=== PATIENT | female | born 1950 | race Caucasian/White ===

== ENCOUNTER → 2024-11-01 15:03 | Outpatient (REF) | payer OTHER, SELFPAY ==
[2024-11-01 16:04] LABS: ALT (SGPT) 64 U/L (0-35); AST (SGOT) 50 U/L (14-36); Albumin 3.3 g/dl (3.5-5.0); Alkaline Phosphatase 170 U/L (38-126); Blood Urea Nitrogen 22 mg/dl (7-17); Calcium 8.3 mg/dl (8.4-10.2); Carbon Dioxide 30 mmol/L (22-30); Chloride 95 mmol/L (98-107); Glucose 149 mg/dl (70-99); Potassium 3.8 mmol/L (3.5-5.1); Sodium 133 mmol/L (135-145); Total Bilirubin 0.9 mg/dl (0.2-1.3); Total Protein 6.5 g/dl (6.3-8.2); eGFR 58.39
[2024-11-01 16:26] LABS: % Basophils 0.3 % (0-2); % Immature Granulocytes 2.6 % (0-0.5); % Neutrophils 88.1 % (42.2-75.2); Absolute Basophils 0.1 10^3/uL (0-0.2); Absolute Immature Granulocytes 0.6 10^3/uL (0-0.05); Absolute Lymphocytes 0.7 10^3/uL (1.2-3.4); Absolute Monocytes 1.4 10^3/uL (0.1-0.6); Absolute Neutrophils 20.4 10^3/uL (1.4-6.5); Hematocrit 35.5 % (37.0-47.0); Hemoglobin 11.6 g/dL (12.0-16.0); Mean Corp Hgb Conc. 32.7 g/dL (33.0-37.0); Mean Corpuscular Hgb 26.5 pg (27.0-31.0); Mean Corpuscular Volume 81.1 fL (81.0-99.0); Mean Platelet Volume 9.3 fL (7.4-10.4); Nucleated Red Blood Cells % 0 %; Platelet Count 448 10^3/uL (130-400); Red Blood Cell Count 4.38 10^6/uL (4.20-5.40); Red Cell Dist. Width 15.2 % (11.5-14.5); White Blood Cell Count 23.2 10^3/uL (4.8-10.8)
== END ==
LOC: RAD 15:03
PROVIDERS: ATTENDING PHYSICIAN Family Medicine
DX: R10.30 Lower abdominal pain, unspecified (principal); R03.1 Nonspecific low blood-pressure reading; R50.9 Fever, unspecified; R31.9 Hematuria, unspecified; N39.0 Urinary tract infection, site not specified
CPT/HCPCS: 74177; 36415; 80053; 85025; Q9967

== ENCOUNTER 2024-11-01 21:33 | Inpatient (IN) | payer OTHER, SELFPAY ==
[2024-11-01 17:27] VITALS: BP 102/75
--- NOTE | 2024-11-01 19:22 | EDRN ---
Pts verbally aggressive and rude to staff. Pts is concerned that others that have arrived after his did are having treatment sooner than his , informed that patients are triaged and go back into treatment area by acuity and
not by time of arrival. Pts began to raise his voice and attempt to intimidate this RN, this RN asked pts to have a seat in waiting area and pts stood at desk and continued to attempt to intimidate this RN. Pts
finally returned to the waiting area with his and is seated next to her, pt in no signs of distress.
[2024-11-01 20:24] VITALS: BMI 34.8
[2024-11-01 20:30] VITALS: BP 112/73
--- NOTE | 2024-11-01 20:43 | ED.GENMED ---
History of Present Illness
<Nina Lewis SENIOR CONSULTANT - Last Filed: 11/02/24 03:09>
General
Chief Complaint: Abnormal Lab Value
Source: patient and spouse
Exam Limitations: none
Time Seen by Provider: 11/01/24 20:05
Nursing documentation reviewed up to this point in time: agreed with
History of Present Illness
History of Present Illness:
74yo female w h/o HTN, here for fatigue, abdominal pain, poor appetite, symptoms started 9 days ago, saw PCP on 10/30, started on Cipro and Flomax for a reported urinary tract infection, she has had a total of 4 doses of Cipro,
She had outpatient lab work done and her PCP called her today to tell her to get to the hospital as her lab work is abnormal. She states her pain is now 2/10. She is comfortable laying on her back. She states her temp max was 102.2 earlier today
and has taken no Tylenol or ibuprofen. She denies N/V, had 2 days of severe diarrhea yesterday and the day before, she has had no diarrhea today.
Past History
<Nina Lewis, SENIOR CONSULTANT - Last Filed: 11/02/24 03:09>
Past History
ED Past Medical History: HTN
ED Past Surgical History: Gynecological and Orthopedic
Social History
Tobacco: Former smoker
Alcohol: Occasional
Personal:
Living: with family
Review of Systems
<Nina Lewis, SENIOR CONSULTANT - Last Filed: 11/02/24 03:09>
Review of Systems
Allergies reviewed?: Yes
All Other Systems: ROS reviewed and negative except as documented in HPI and ROS
Constitutional: Reports fever
Respiratory: Denies trouble breathing
Cardiac: Denies chest pain
ABD/GI: Reports abdominal pain, nausea and diarrhea; Denies vomiting, bloody stools or black stools
: Denies dysuria or difficulty voiding
Musculoskeletal: Reports no symptoms
Skin: Reports no symptoms
Neurological: Reports no symptoms
Phy Exam
<Nina Lewis, SENIOR CONSULTANT - Last Filed: 11/02/24 03:09>
Physical Exam
Physical Exam:
GENERAL: No acute distress. A&Ox3.
CONSTITUTIONAL: Afebrile.
EYES: clear, conjunctivae normal
ENMT: moist mucus membranes, Pharynx nl
RESPIRATORY: Regular respirations, nonlabored, lungs clear.
CARDIOVASCULAR: Regular rate and rhythm, no murmurs, no rubs.
GI: Soft, mild tenderness across lower abdomen, normal BS
MUSCULOSKELETAL: Moves with ease. Well perfused.
SKIN: Warm, dry, pink
PSYCH: Normal mood and affect. Well kept, interactive and appropriate
NEUROLOGIC: Awake, alert and oriented. No focal neurological deficits
Course
<Nina Lewis, SENIOR CONSULTANT - Last Filed: 11/02/24 03:09>
Orders/Labs/Results
Orders:
Orders
11/01/24 Breakfast
NPO
Allow oral meds: Yes
Allow clear liquids: Sips of Clears
11/01/24 20:20
Urinalysis Reflex To Culture Urgent
Date Specimen was Collected: 11/01/24
Time Specimen was Collected: 22:42
11/01/24 20:28
Lactic Acid Q4H
Comment: CANCEL 2nd LACTIC ACID IF 1st LACTIC ACID IS LESS THAN 2
Blood Culture Q30M
FARAZ Source: Blood/Venous
Specimen Description:
Blood Culture Q30M
FARAZ Source: Blood/Venous
Specimen Description:
11/01/24 20:32
Ampicillin/Sulbactam 3 G [Unasyn] 3 gm 0.9% Sodium Chloride 100 ml [Nss] 100 ml IV NOW
11/01/24 20:36
0.9% Sodium Chloride 1000 ml [Nss] 1,000 ml IV BOLUS
11/01/24 20:41
IRAD CONSULT Urgent
Consulting Provider: Mohamud Nichols
Was physician already notified: Yes
Procedure being ordered, including laterality if applicable: divertic w abscesses
Acknowledgement that appropriate orders are entered: Yes
11/01/24 20:42
ColoRectal Surgery Consult Urgent
Consulting Provider: Xander Gómez
Was physician already notified: Yes
Reason for consult: sigmoid diverticulitis with abscesses
11/01/24 20:44
Piperacillin/Tazo 4.5 Gram [Zosyn] 4.5 gram in 100 ml IV NOW
11/01/24 21:18
HYDROmorphone [Dilaudid] 0.5 mg IV NOW STA
11/01/24 21:19
Admit/Transfer Patient As Directed
Co-Sign Provider:
Level of Care: Inpatient admission
Assign to:: Medical/Surgical
Physician / Group: Deangelo
Diagnosis: Acute Diverticulitis with Abscess(es)
Reason for Hospitalization: Acute Diverticulitis with Abscess(es)
Expected length of stay greater than two midnights?: Yes
ELOS- Estimated Length of Stay in days: 3
I certify the patient meets the requirements for IP care: Yes
PRN Pain Medication Management As Directed
May give lesser potent ordered pain med per pt: Yes
preference::
Protocol:: Medication orders for pain may be administered in a
manner that supports deferring to patient preference
when the pt is:
- Requesting an ordered lesser potent pain medication.
Least to most potent pain medications are defined
as: acetaminophen < NSAID < tramadol < opioids
(morphine, oxycodone, hydromorphone).
- Requesting a lesser dose of the same medication IF
ORDERED.
- Requesting a less intrusive route of administration
if both routes are prescribed by the provider (PO <
IV).
11/01/24 21:20
Code Status As Directed
Resuscitation Status: Full Code
11/01/24 21:27
HYDROmorphone [Dilaudid] 0.5 mg IV NOW STA
11/01/24 22:00
Flush (0.9% Sodium Chloride) [Flush (Nss)] See Dose Instructions IV PER PROTOCOL
11/01/24 22:38
Acetaminophen [Tylenol] 650 mg PO Q4HPRN PRN
HYDROmorphone [Dilaudid] 0.5 mg IV Q4HPRN PRN
Lactated Ringers [Lr] 1,000 ml IV 125 mls/hr
Ondansetron Injectable [Zofran] 4 mg IV Q6HPRN PRN
11/01/24 22:38
Fluid Culture with Gram Stain Routine
FARAZ Source: Fluid
Specimen Description:
Comment: IR abscess drainage
Activity As Directed
Activity Level: Ambulate
With Assistance
I/O [Intake/ Output] As Directed
Frequency: Per unit guidelines
Pneumatic Compression Sleeves As Directed
Type: Knee high
Vital Signs As Directed
Frequency: Per unit guidelines
Oxygen Therapy [O2 Therapy] [RESP] Routine
Titrate/Wean O2 to maintain O2 sat greater than (%): 94
DX Deep Vein Thrombosis Video Routine
11/02/24 00:30
Lactic Acid Q4H
Comment: CANCEL 2nd LACTIC ACID IF 1st LACTIC ACID IS LESS THAN 2
11/02/24 02:00
Piperacillin/Tazo 3.375 Gram [Zosyn] 3.375 gram in 50 ml IV Q6H
11/02/24 06:00
Basic Metabolic Panel IN AM
Complete Blood Count/No Diff IN AM
Vital Signs
Initial and Last Documented VS:
Initial Vital Signs
Temp Pulse Resp BP Pulse Ox
98.5 F 98 16 102/75 94
11/01/24 17:27 11/01/24 17:27 11/01/24 17:27 11/01/24 17:27 11/01/24 17:27
Last Documented Vital Signs
Temp Pulse Resp BP Pulse Ox
97.4 F 90 18 125/75 95
11/01/24 22:53 11/01/24 22:53 11/01/24 22:53 11/01/24 22:53 11/01/24 22:53
Automotive Technology Instructor consulted with Physician
Automotive Technology Instructor consulted with physician?: Yes
Name of Physician Consulted: Brian
<Kristian Torres, DO - Last Filed: 11/01/24 21:29>
Orders/Labs/Results
Orders:
Orders
11/01/24 Breakfast
NPO
Allow oral meds: Yes
Allow clear liquids: Sips of Clears
11/01/24 20:20
Urinalysis Reflex To Culture Urgent
Date Specimen was Collected: 11/01/24
Time Specimen was Collected: 22:42
11/01/24 20:28
Lactic Acid Q4H
Comment: CANCEL 2nd LACTIC ACID IF 1st LACTIC ACID IS LESS THAN 2
Blood Culture Q30M
FARAZ Source: Blood/Venous
Specimen Description:
Blood Culture Q30M
FARAZ Source: Blood/Venous
Specimen Description:
11/01/24 20:32
Ampicillin/Sulbactam 3 G [Unasyn] 3 gm 0.9% Sodium Chloride 100 ml [Nss] 100 ml IV NOW
11/01/24 20:36
0.9% Sodium Chloride 1000 ml [Nss] 1,000 ml IV BOLUS
11/01/24 20:41
IRAD CONSULT Urgent
Consulting Provider: Mohamud Nichols
Was physician already notified: Yes
Procedure being ordered, including laterality if applicable: divertic w abscesses
Acknowledgement that appropriate orders are entered: Yes
11/01/24 20:42
ColoRectal Surgery Consult Urgent
Consulting Provider: Xander Gómez
Was physician already notified: Yes
Reason for consult: sigmoid diverticulitis with abscesses
11/01/24 20:44
Piperacillin/Tazo 4.5 Gram [Zosyn] 4.5 gram in 100 ml IV NOW
11/01/24 21:18
HYDROmorphone [Dilaudid] 0.5 mg IV NOW STA
11/01/24 21:19
Admit/Transfer Patient As Directed
Co-Sign Provider:
Level of Care: Inpatient admission
Assign to:: Medical/Surgical
Physician / Group: Deangelo
Diagnosis: Acute Diverticulitis with Abscess(es)
Reason for Hospitalization: Acute Diverticulitis with Abscess(es)
Expected length of stay greater than two midnights?: Yes
ELOS- Estimated Length of Stay in days: 3
I certify the patient meets the requirements for IP care: Yes
PRN Pain Medication Management As Directed
May give lesser potent ordered pain med per pt: Yes
preference::
Protocol:: Medication orders for pain may be administered in a
manner that supports deferring to patient preference
when the pt is:
- Requesting an ordered lesser potent pain medication.
Least to most potent pain medications are defined
as: acetaminophen < NSAID < tramadol < opioids
(morphine, oxycodone, hydromorphone).
- Requesting a lesser dose of the same medication IF
ORDERED.
- Requesting a less intrusive route of administration
if both routes are prescribed by the provider (PO <
IV).
11/01/24 21:20
Code Status As Directed
Resuscitation Status: Full Code
11/01/24 21:27
HYDROmorphone [Dilaudid] 0.5 mg IV NOW STA
11/01/24 22:00
Flush (0.9% Sodium Chloride) [Flush (Nss)] See Dose Instructions IV PER PROTOCOL
11/01/24 22:38
Acetaminophen [Tylenol] 650 mg PO Q4HPRN PRN
HYDROmorphone [Dilaudid] 0.5 mg IV Q4HPRN PRN
Lactated Ringers [Lr] 1,000 ml IV 125 mls/hr
Ondansetron Injectable [Zofran] 4 mg IV Q6HPRN PRN
11/01/24 22:38
Fluid Culture with Gram Stain Routine
FARAZ Source: Fluid
Specimen Description:
Comment: IR abscess drainage
Activity As Directed
Activity Level: Ambulate
With Assistance
I/O [Intake/ Output] As Directed
Frequency: Per unit guidelines
Pneumatic Compression Sleeves As Directed
Type: Knee high
Vital Signs As Directed
Frequency: Per unit guidelines
Oxygen Therapy [O2 Therapy] [RESP] Routine
Titrate/Wean O2 to maintain O2 sat greater than (%): 94
DX Deep Vein Thrombosis Video Routine
11/02/24 00:30
Lactic Acid Q4H
Comment: CANCEL 2nd LACTIC ACID IF 1st LACTIC ACID IS LESS THAN 2
11/02/24 02:00
Piperacillin/Tazo 3.375 Gram [Zosyn] 3.375 gram in 50 ml IV Q6H
11/02/24 06:00
Basic Metabolic Panel IN AM
Complete Blood Count/No Diff IN AM
Vital Signs
Initial and Last Documented VS:
Initial Vital Signs
Temp Pulse Resp BP Pulse Ox
98.5 F 98 16 102/75 94
11/01/24 17:27 11/01/24 17:27 11/01/24 17:27 11/01/24 17:27 11/01/24 17:27
Last Documented Vital Signs
Temp Pulse Resp BP Pulse Ox
97.4 F 90 18 125/75 95
11/01/24 22:53 11/01/24 22:53 11/01/24 22:53 11/01/24 22:53 11/01/24 22:53
<Nina Lewis SENIOR CONSULTANT - Last Filed: 11/02/24 03:09>
MDM/Problems Addressed
Differential Diagnosis Includes:
diverticulitis, intra abdominal abscess
MDM/Problems Addressed:
74yo female w h/o HTN, here for fatigue, abdominal pain, poor appetite, symptoms started 9 days ago, saw PCP on 10/30, started on Cipro and Flomax for a reported urinary tract infection, she has had a total of 4 doses of Cipro,
She had outpatient lab work done and her PCP called her today to tell her to get to the hospital as her lab work is abnormal. She states her pain is now 2/10. She is comfortable laying on her back. She states her temp max was 102.2 earlier today
and has taken no Tylenol or ibuprofen. She denies N/V, had 2 days of severe diarrhea yesterday and the day before, she has had no diarrhea today.
Does not appear septic
WBC 23.2 w left shift
CMP noted
CT results radiology report read:
IMPRESSION: Findings suggesting at least 3 rim-enhancing fluid collection the pelvis just abscesses. No evidence of perforation. Probable due to acute diverticulitis of the distal sigmoid colon. New
possible mild pyelonephritis. New. Clinical and laboratory correlation recommended
Gallstones. Stable
Bilateral parapelvic renal cysts. Right cortical renal scarring. Bilateral too small to catheterize hypodense renal lesions likely benign cysts. Stable
Pancreatic fatty infiltration. Progressed
Small fat-containing supraumbilical hernia. No evidence of incarceration or strangulation. Stable
Hospitalist, Colorectal surgeon Dr. Gómez and IR Dr. Nichols notified of admission.
Chronic conditions affecting care: HTN
<Nina Lewis SENIOR CONSULTANT - Last Filed: 11/02/24 03:09>
*Critical Care Note
Total Time (30-74mins, 75-104mins- exclusive of procedures): Not Applicable
ED Attending Note
<Nina Lewis, SENIOR CONSULTANT - Last Filed: 11/02/24 03:09>
-
Portions of this chart may have been created with voice recognition software.� Occasional wrong word or��sound alike� substitutions may have occurred due to the inherent limitations of voice recognition software.
<Kristian Torres DO - Last Filed: 11/01/24 21:29>
ED Attending Note
Patient seen and examined by attending physician: Yes
I performed the substantive portion of visit, reviewed & personally made and approve the management plan that is documented in note by myself or WICHO.: Yes
ED Attending Note:
Seen with SENIOR CONSULTANT examined independently called in from PCP abdominal pains, diverticular abscess low blood pressure white count noted antibiotics have been ordered pain meds have been ordered consults have been placed to surgery and IR admitted to the
hospitalist service
Discharge Plan
Departure
Patient Disposition: Admit
Date of Disposition: 11/01/24
Time of Disposition: 20:35
Admit to: Med/Surg
Presentation/result/management discussed w/ accepting MD/DO: Hospitalist
Condition: Fair
Discharge Problem:
Intra-abdominal abscess
Interventions
Interventions:
*Risk Screen - Suicide Last Done: 11/01/24 17:29
*General Assessment Last Done: 11/01/24 21:04
*Neglect/Abuse Screening Last Done: 11/01/24 17:29
*ED- Fall Risk Assessment Last Done: 11/01/24 21:04
*ED COVID-19 Vaccine History Last Done: 11/01/24 21:04
*Nursing Disposition Last Done: 11/01/24 22:47
Discharge Date and Time
Discharge Date/Time: 11/01/24 22:47
[2024-11-01] MEDS: NSS 1000 IV (20:45)
[2024-11-01 21:00] VITALS: BP 123/72
[2024-11-01] MEDS: ZOSYN 100 IV (21:02)
[2024-11-01 21:18] LABS: Lactic Acid 1.1 mmol/L (0.7-2.0)
--- NOTE | 2024-11-01 21:27 | HPS.HSE ---
Family Physician
-
Family Physician: NOT KNOW UNKNOWN - PT DOES
Chief Complaint
-
Abd Pain
History of Present Illness
Patient is a 74y F with PMH significant for hypertension and obesity who presents to ED complaining of abdominal pain. Patient states that she was constipated recently for a period of about 2 weeks. This is quite unusual for her. She contacted
her PCP who recommended MOM which she took. She then had diarrhea x 2 days. Patient states that she has felt poorly since that time - she complains of lower abdominal pressure and pain, poor appetite, general weakness, fevers / chills and some
confusion. She was seen on Monday by her PCP and UA in the office suggested infection. She was started on Cipro and tamsulosin at that time without significant improvement in her symptoms.
She was seen again by her PCP today and sent for outpatient labs / imaging.
Labs included significant leukocytosis. CT scan showed sigmoid diverticulitis with 3 areas of small abscesses. Patient was advised to present to the ED for further evaluation.
Medical History
Past Medical History
Past Medical History: Reports Other
Additional Past Medical History:
Hypertension
Obesity
Anxiety / Depression
DJD
Past Surgical History: Reports Other
Additional Past Surgical History:
Left TKA x 2
Right TKA
KEN
Social History
Tobacco: Former Smoker (Quit smoking in 1998.)
Alcohol: Occasional
Drug: None
Family History
Family History: Not pertinent
Allergies / Home Medications
Allergies reflects when Allergies were last updated in [facility].
Home Medications with original date entered in [facility]
Allergy/Medication List:
Allergies
Allergy/AdvReac Type Severity Reaction Status Date / Time
No Known Allergies Allergy Verified 03/03/23 11:58
Home Medications
ferrous sulfate 325 mg (65 mg iron) tablet 325 mg PO DAILY Supplement ##0 01/31/14
cholecalciferol (vitamin D3) 125 mcg (5,000 unit) tablet (Vitamin D3) 125 mcg PO DAILY Supplement 03/03/23
melatonin 5 mg tablet 5 mg PO HS Sleep 03/03/23
multivitamin 1 tab PO DAILY Supplement 03/03/23
irbesartan 300 mg tablet 300 mg PO DAILY Blood pressure #0 tabs 03/05/23
Review of Systems
-
History Source: Patient
A 12 point ROS was completed and negative except as noted: Yes
Constitutional: Reports Fever, Fatigue and Chills
EENT: Denies Sore Throat
Respiratory: Denies Cough or Trouble Breathing
Cardiac: Denies Chest Pain or Palpitations
Abdomen/GI: Reports Abdominal Pain and Anorexia; Denies Nausea, Vomiting, Bloody Stools or Black Stools
: Denies Dysuria, Frequency or Flank Pain
Musculoskeletal: Denies Joint Pain or Edema
Neurological: Denies Dizzy or Headache
Physical Exam
Vital Signs
Vital Signs
Temp Pulse Resp BP Pulse Ox
98.5 F 82 18 123/72 98
11/01/24 17:27 11/01/24 21:00 11/01/24 21:00 11/01/24 21:00 11/01/24 21:00
Physical Exam
General: Other (74y F in mild distress due to pain.)
HEENT: Moist mucous membranes
Respiratory: Clear; No Wheezes, Rales or Rhonchi
Cardiac: S1/S2 and Regular Rhythm; No Murmur
GI: Other (Soft, pos tenderness along lower abdomen. No rebound / guarding. Pos BS.)
Musculoskeletal: No Clubbing, No Cyanosis and No Edema
Neuro: AO x 3
Laboratory Results
-
Laboratory Results
Lactic Acid 1.1 mmol/L (0.7-2.0) 11/01/24 20:28
Impression/Plan
-
A/P: Patient is a 74y F with PMH significant for hypertension who presents to ED complaining of abdominal pain, fevers / chills and anorexia.
Acute Sigmoid Diverticulitis with Abscess(es)
- Admit for further evaluation and treatment.
- NPO, IVFs, IV abx.
- IR consulted for percutaneous abscess drainage as able.
- Follow-up results of IR cultures.
- Surgery also consulted for additional recommendations.
- Follow for clinical improvement.
Benign Hypertension
- Stable. Can hold irbesartan for now with low normal blood pressures.
- Resume if needed.
Obesity due to excess calories
- Affects all aspects of care.
- Encourage healthy diet and increased exercise with goal of weight loss.
DVT Prophylaxis: SCDs
Code Status: Full
[2024-11-01] MEDS: DILAUDID 0.5 MG IV (21:37)
[2024-11-01 22:00] VITALS: BP 114/70
[2024-11-01 22:53] VITALS: BP 125/75; BMI 35.3
[2024-11-01] MEDS: LR 1000 IV (22:59)
[2024-11-02] VITALS (7 sets, daily range): BP systolic 82–157; BP diastolic 72–81
[2024-11-02] MEDS: ZOSYN 50 IV ×4 (02:23→20:56)
[2024-11-02] MEDS: DILAUDID 0.5 MG IV ×4 (02:24→23:46)
[2024-11-02 05:08] LABS: Urine Albumin 2+ (Neg - Trace); Urine Bilirubin Negative (Negative); Urine Character Cloudy (Clear); Urine Color Yellow; Urine Glucose Negative (Negative); Urine Ketone Negative (Negative); Urine Leukocyte 3+ (Negative); Urine Nitrite Negative (Negative); Urine Occult Blood 3+ (Negative); Urine Urobilinogen Negative (Neg - 1+)
[2024-11-02 05:54] LABS: Urine Squamous Cell >30 /LPF (Few)
[2024-11-02 05:57] LABS: Urine Bacteria Moderate (Negative); Urine Red Blood Cell 50-60 /HPF (0-2); Urine White Cell >100 /HPF (0-5)
--- NOTE | 2024-11-02 07:15 | W.PN.HOSP.TC ---
Today's Communication/Plan
-
cont IV abx
follow culture results
pain control
diet as per surgery
Assessment / Plan
Assessment / Plan
Physical Exam
General: No acute distress, appears comfortable
HEENT: Moist mucous membranes EOMI
Respiratory: Clear; No Wheezes, Rales or Rhonchi
Cardiac: S1/S2 and Regular Rhythm; No Murmur
GI: Soft, mild tenderness lower abdomen. No rebound / guarding. Pos BS. BENIGNO drain present
Musculoskeletal: No Clubbing, No Cyanosis and No Edema
Neuro: AO x 3 conversant coherent
74F HTN Obesity here for diverticulitis with associate abscess.
Acute Sigmoid Diverticulitis with Abscesses
- IV abx.
- IR consult appreciated percutaneous abscess drained, and BENIGNO drain placed
- Follow-up results of IR cultures.
- Surgery consult appreciated
- Clear liquid diet as per surgery
Benign Hypertension
- Stable. Can hold irbesartan for now with low normal blood pressures.
- Resume if needed.
Obesity due to excess calories
- Affects all aspects of care.
- Encourage healthy diet and increased exercise with goal of weight loss.
DVT Prophylaxis: SCDs
Code Status: Full
Discussed with patient and patient's daughter Lupe at bedside
I spent a total of 50 minutes with the patient or on the floor. More than 50% of this time involved counseling and coordination of care.
Anticipated Discharge: 24 - 48 hours
Subjective/Interval History
-
Date of Service: November 02, 2024
Seen and examined at bedside, overall reports feeling well since IR drain placement. No acute distress resting comfortably in bed. Daughter Lupe present during evaluation.
Objective Data
-
Labs:
Laboratory Results
11/02/24
06:00
WBC Pending
Hgb Pending
Hct Pending
Plt Count Pending
Sodium Pending
Potassium Pending
Chloride Pending
Carbon Dioxide Pending
BUN Pending
Creatinine Pending
Glucose Pending
Calcium Pending
Vital Signs:
Vital Signs
Temp Pulse Resp BP Pulse Ox
97.4 F 90 18 125/75 95
11/01/24 22:53 11/01/24 22:53 11/01/24 22:53 11/01/24 22:53 11/01/24 22:53
[2024-11-02] MEDS: LR 1000 IV ×2 (08:18→20:56)
[2024-11-02 08:55] LABS: Hematocrit 31.1 % (37.0-47.0); Hemoglobin 10.3 g/dL (12.0-16.0); Mean Corp Hgb Conc. 33.1 g/dL (33.0-37.0); Mean Corpuscular Hgb 26.4 pg (27.0-31.0); Mean Corpuscular Volume 79.7 fL (81.0-99.0); Mean Platelet Volume 9.6 fL (7.4-10.4); Platelet Count 415 10^3/uL (130-400); Red Cell Dist. Width 14.9 % (11.5-14.5); White Blood Cell Count 19.5 10^3/uL (4.8-10.8)
[2024-11-02 09:09] LABS: Lactic Acid 0.9 mmol/L (0.7-2.0)
[2024-11-02 10:48] LABS: Blood Urea Nitrogen 17 mg/dl (7-17); Carbon Dioxide 26 mmol/L (22-30); Chloride 101 mmol/L (98-107); Estimated Creatinine Clearance 74 ml/min; Glucose 128 mg/dl (70-99); Potassium 3.8 mmol/L (3.5-5.1); Sodium 135 mmol/L (135-145); eGFR > 60.00
--- NOTE | 2024-11-02 11:01 | CON.GS ---
Addendum entered and electronically signed by Xander Gómez MD 11/02/24 13:02:
I saw and examined the patient independently.
The Buttonhole Tacker's note was reviewed and I agree with the note, assessment and plan except where noted below.
Comment: This is a 74-year-old female with a history of morbid obesity, hypertension, KEN who presents to the hospital with left lower quadrant pain in the setting of some similar episodes in the past but no previous formal diagnosis of
diverticulitis and found to have complicated sigmoid diverticulitis with multiple abscesses in the pelvis. The largest 1 appears amenable to IR drainage.
N.p.o. for now, okay for clears after IR procedure.
IV fluids, continue IV antibiotics.
IR consult for image guided drain placement and cultures.
Patient will need a colonoscopy as an outpatient.
General surgery will follow over the weekend, colorectal surgery to take over on Monday.
Original Note:
Consultation
-
Date/Time Consultation Requested: 11/01/242041
Date/Time Consultation Performed: 11/02/24 1045
Requesting Provider: Day
Performing Provider: Ryne Gómez
Reason for Consultation: sigmoid diverticulitis with abscesses
Medical History
-
Chief Complaint: diarrhea/abdominal pain
History of Present Illness:
Ms Wyman is a 74 yo female with a h/o HTN and KEN who presented through the Ed yesterday with LLQ discomfort and fever at home. She notes constipation over the past 2 weeks which is unusual for her causing her to be evaluated by her PCP who
recommended she try MOM. She took one dose of the MOM and then began having diarrhea for the next 48 hours. She began noting discomfort to her LLQ into her pelvis around this time as well. During her visit with her PCP she was also noted to have an
abnormal UA and was initiated on Cipro and had taken 4 doses prior to admission. She noted a fever at home up to 102.2 and presented to the ED for evaluation. She denies associated nausea and vomiting. She is no longer having diarrheas. She has been
afebrile since admission. On exam, she is mildly tender to the LLQ.
Past Medical History
Past Medical History: HTN and Other (obesity, anxiety/depression, djd)
Past Surgical History: Gynecological (KEN) and Orthopedic (left TKA with revision, right TKA)
Social History
Tobacco: Former Smoker (quit 1998)
Alcohol: Occasional
Family History
Family History: Reviewed & Not Pertinent
Allergies / Home Medications
Allergy/AdvReac Type Severity Reaction Status Date / Time
No Known Allergies Allergy Verified 03/03/23 11:58
�Medication �Instructions �Recorded �Confirmed �Type
ferrous sulfate 325 mg (65 mg 325 mg PO DAILY Supplement ##0 01/31/14 11/01/24 History
iron) tablet
cholecalciferol (vitamin D3) 125 125 mcg PO DAILY Supplement 03/03/23 11/01/24 History
mcg (5,000 unit) tablet (Vitamin
D3)
melatonin 5 mg tablet 5 mg PO HS Sleep 03/03/23 11/01/24 History
multivitamin 1 tab PO DAILY Supplement 03/03/23 11/01/24 History
irbesartan 300 mg tablet 300 mg PO DAILY Blood pressure #0 03/05/23 11/01/24 Rx
tabs
Review of Systems
-
History Source: Patient
All other systems: Negative unless noted
A 10 point review of systems was completed, and was negative except as per HPI.
Physical Exam
Vital Signs
Temp Pulse Resp BP Pulse Ox
98.4 F 84 18 145/77 95
11/02/24 10:52 11/02/24 10:52 11/02/24 10:52 11/02/24 10:52 11/02/24 10:52
11/01/24 11/02/24 11/03/24
06:59 06:59 06:59
Actual Weight 114.787 kg
Body Mass Index (BMI) 35.3
Lab Results
11/02/24 08:20
11/02/24 10:23
WBC 19.5 10^3/uL (4.8-10.8) H 11/02/24 08:20
Hgb 10.3 g/dL (12.0-16.0) L 11/02/24 08:20
Hct 31.1 % (37.0-47.0) L 11/02/24 08:20
Plt Count 415 10^3/uL (130-400) H 11/02/24 08:20
Physical Exam
General: Well Developed and Well Nourished
HEENT: Moist Mucous Membranes
Respiratory: Non Labored Respirations
GI: Soft, Non Distended and Tender (mild to LLQ)
Skin: Warm and Dry
Neuro: Awake and AO x 3
Psych: Calm
Data Reviewed
-
CT Scan: Image Personally Visualized and interpreted, Report Reviewed by me, Discussed with Physician and Discussed with Patient
Labs: Labs Reviewed by me, Discussed with Physician and Discussed with Patient
Old Records: Reviewed
Assessment / Plan
-
Ms Wyman is a 74 yo female with a h/o HTN and KEN who presented through the Ed yesterday with LLQ discomfort and fever at home of 102.2. She initially had constipation followed by diarrhea over the past 2 weeks and was initiated on cipro as an
outpatient for ?UTI with 4 doses of cipro taken JANITORIAL TECH. LLQ tenderness present on exam with Ct imaging demonstrating findings consistent with acute complicated sigmoid diverticulitis with several abscesses, the largest of which is 8.7x4.3cm. This is
her first episode of diverticulitis. She is afebrile since presentation without n/v. Mild pain present. Leukocytosis noted on presentation of 23.2 and now trended down to 19.5.
Plan:
Continue IV ABX with Zosyn
IR consulted for abscess drainage
OK for clear liquids s/p IR procedure
C/W IVF
Manage with bowel rest, abscess drainage and antibiotics. Hopefully we will be able to avoid emergent surgery this presentation as this would likely involve a colostomy given the extent of inflammation present. Will follow.
--- NOTE | 2024-11-02 12:34 | PTCARENOTE ---
received from [facility] post left buttock BENIGNO drain placement- assisted to bed, patient sleepy but arousable, vitals noted. denies pain at present. left buttock dressing dry and intact with BENIGNO drain draining bocanegra/butler fluid. at bedside. plan of
care on going
[2024-11-02] MEDS: LR IV (20:35)
[2024-11-02] MEDS: MELATONIN 5 MG PO (20:57)
[2024-11-03] MEDS: ZOSYN 50 IV ×4 (02:22→20:23)
[2024-11-03] MEDS: LR 1000 IV ×3 (05:59→22:58)
[2024-11-03] MEDS: DILAUDID 0.5 MG IV (06:17)
[2024-11-03 06:30] LABS: Hematocrit 33.5 % (37.0-47.0); Hemoglobin 10.9 g/dL (12.0-16.0); Mean Corp Hgb Conc. 32.5 g/dL (33.0-37.0); Mean Corpuscular Hgb 26.5 pg (27.0-31.0); Mean Corpuscular Volume 81.3 fL (81.0-99.0); Mean Platelet Volume 9.2 fL (7.4-10.4); Platelet Count 463 10^3/uL (130-400); Red Blood Cell Count 4.12 10^6/uL (4.20-5.40); Red Cell Dist. Width 15.2 % (11.5-14.5); White Blood Cell Count 21.9 10^3/uL (4.8-10.8)
[2024-11-03 06:53] LABS: Blood Urea Nitrogen 14 mg/dl (7-17); Calcium 8.1 mg/dl (8.4-10.2); Carbon Dioxide 30 mmol/L (22-30); Chloride 100 mmol/L (98-107); Estimated Creatinine Clearance 74 ml/min; Glucose 122 mg/dl (70-99); Phosphorus 4.1 mg/dl (2.5-4.5); Potassium 3.7 mmol/L (3.5-5.1); Sodium 135 mmol/L (135-145); eGFR > 60.00
--- NOTE | 2024-11-03 07:00 | W.PN.HOSP.TC ---
Today's Communication/Plan
-
wound care, drain mgmt, diet as per CRS
cont abx
pain control transitioned to PO, IV remains available for severe breakthrough pain
Assessment / Plan
Assessment / Plan
Physical Exam
General: No acute distress, appears comfortable
HEENT: Moist mucous membranes EOMI
Respiratory: Clear; No Wheezes, Rales or Rhonchi
Cardiac: S1/S2 and Regular Rhythm; No Murmur
GI: Soft, mild tenderness lower abdomen. No rebound / guarding. Pos BS. BENIGNO drain present
Musculoskeletal: No Clubbing, No Cyanosis and No Edema
Neuro: AO x 3 conversant coherent
74F HTN Obesity here for diverticulitis with associate abscess.
Acute Sigmoid Diverticulitis with Abscesses
- IV abx.
- IR consult appreciated percutaneous abscess drained, and BENIGNO drain placed
- Follow-up results of IR cultures.
- CRS consult appreciated
- Low residue diet as per CRS
- Pain control transitioned to po prn percocet, IV Dilaudid remains available for severe breakthrough pain
- Lidocaine patch at drain site tenderness
Hypertension
- BP well controlled at this time w/o irbesartan, cont hold, may consider discontinuing on discharge if not needed.
Obesity due to excess calories
- Affects all aspects of care.
- Encourage healthy diet and increased exercise with goal of weight loss.
DVT Prophylaxis: SCDs
Code Status: Full
I spent a total of 45 minutes with the patient or on the floor. More than 50% of this time involved counseling and coordination of care.
Anticipated Discharge: 24 - 48 hours
Subjective/Interval History
-
Date of Service: November 03, 2024
No acute distress. Reports feeling well. Tolerating diet. No bowel movement since admission. Denies nausea vomiting. pain well controlled with current pain regimen.
Objective Data
-
Labs:
Laboratory Results
11/03/24
06:12
WBC 21.9 H
Hgb 10.9 L
Hct 33.5 L
Plt Count 463 H
Sodium 135
Potassium 3.7
Chloride 100
Carbon Dioxide 30
BUN 14
Creatinine 0.9
Glucose 122 H
Calcium 8.1 L
Vital Signs:
Vital Signs
Temp Pulse Resp BP Pulse Ox
98.7 F 90 18 157/74 94
11/02/24 23:24 11/02/24 23:24 11/02/24 23:24 11/02/24 23:24 11/02/24 23:24
I&O
11/02/24 11/03/24 11/04/24
06:59 06:59 06:59
Intake Total 1350 / 1350
Output Total 40 / 40
Balance 1310 / 1310
[2024-11-03 07:10] LABS: Magnesium 2.1 mg/dl (1.6-2.3)
[2024-11-03 07:54] VITALS: BP 141/75
[2024-11-03] MEDS: FLUSH (NSS) 1 FLUSH IV ×2 (08:49→13:57)
[2024-11-03] MEDS: THERAGRAN 1 TABLET PO (08:50)
[2024-11-03] MEDS: FEOSOL 325 MG PO (08:50)
[2024-11-03] MEDS: VITAMIN D3 (cholecalciferol) 125 MCG PO (08:50)
--- NOTE | 2024-11-03 09:24 | W.PN.CRS1 ---
Today's Communication / Plan
-
Continue antibiotics will plan for a 14-day course now that we have source control. Follow-up cultures
Continue flushing IR drain.
Can add lidocaine patches for around the drain site to help with pain control
Okay to advance from clears to a low residue diet.
Anticipate discharge as early as tomorrow potentially as early as tomorrow pending clinical course.
Colorectal surgery to take over care of this patient tomorrow morning.
Assessment/Plan
-
This is a 74-year-old female with a history of morbid obesity, hypertension, total abdominal hysterectomy who presents with left lower quadrant pain and found to have complicated sigmoid diverticulitis with multiple small and 1 dominant abscess in
the pelvis PPD #1 status post transgluteal IR drain placement.
Continue antibiotics will plan for a 14-day course now that we have source control. Follow-up cultures
Continue flushing IR drain.
Can add lidocaine patches for around the drain site to help with pain control
Okay to advance from clears to a low residue diet.
Anticipate discharge as early as tomorrow potentially as early as tomorrow pending clinical course.
Colorectal surgery to take over care of this patient tomorrow morning.
Subjective Data
Procedure
None
Subjective Data
Date of Service: November 03, 2024
Interval Events:
No acute events overnight. Slept well. Patient got her IR drain, pain tolerable with pain medication. Denies Nausea/Vomiting, +bowel function. Tolerating diet.
Objective Data
-
Vital Signs
Temp Pulse Resp BP Pulse Ox
98.4 F 84 20 141/75 95
11/03/24 07:54 11/03/24 07:54 11/03/24 07:54 11/03/24 07:54 11/03/24 08:34
Intake & Output
11/02/24 11/03/24 11/04/24
06:59 06:59 06:59
Intake Total 1350 / 1350
Output Total 40 / 40
Balance 1310 / 1310
Intake:
Oral fluids 240 / 240
IV fluids (Total) 1000 / 1000
IV piggybacks 100 / 100
Amount instilled into Drain (
Total)
Left Sacrum Placed in IR
Output:
Drain Output (Total) 40
Left Abdomen
Other:
Number of approximated MODERATE 3 1
amounts of urine
Number of approximated LARGE 1
amounts of urine
Lab Results
11/03/24 06:12
11/03/24 06:12
Physical Exam
-
General: No Acute Distress
Chest: Clear
Abdomen: Soft, Non Distended, Tender (Mildly) and Other (Drain with bocanegra purulent output)
Data Reviewed
-
Diagnostic Radiology: Image Reviewed
CT Scan: Image Reviewed
Total Time Spent with Patient (in minutes): 15
[2024-11-03] MEDS: LIDOCAINE 4% PATCH 1 PATCH TOPICAL (13:57)
--- NOTE | 2024-11-03 14:37 | CM ---
Met with patient to obtain information for assessment. (Received consult for VN). Patient stated that she lives with her spouse in a 2 story single home, 2 steps to enter. She has been independent with her ADLs, personal care, dressing and bathing.
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 She is able to drive and can get herself to her appointments and can do her own shopping. She had VN years ago after a TKR. She does have a walker, a cane and a commode. She relayed that this
was back in 2012. Patient has not been to a SNF in the past but has gone to outpatient rehab.
Patient is agreeable to VN and would like . Will make the referral.
Patient has a prescription plan and uses, [facility] in [place] for all of her medications.
Patient's Provider is, not listed.
Plan: Case management will continue to follow and assist with discharge planning. Home with BOBBY.
[2024-11-03 15:29] VITALS: BP 116/73
--- NOTE | 2024-11-03 16:52 | PTCARENOTE ---
Pt AAO x3, PEÑA; OOB to BR with minimal assistance at times (for IV pole); nella well. VSS. On room air- pulseox 94%, no SOB noted. Abd obese, soft, nella low residue diet. Voids in BR without difficulty. Lt lower flank BENIGNO drain P/I large amts
purulent/butler drainage; dsg currently D/I. IVF's RL @ 125 ml/hr infusing via Lt forearm site without sx of infiltration. Resting in bed at present. Will continue to monitor.
[2024-11-03] MEDS: MELATONIN 5 MG PO (21:09)
[2024-11-03] MEDS: PERCOCET 5/325 2 TABLET PO (21:09)
[2024-11-03 23:20] VITALS: BP 124/61
[2024-11-04] MEDS: ZOSYN 50 IV ×4 (01:37→19:52)
--- NOTE | 2024-11-04 06:08 | PTCARENOTE ---
Pt slept well overnight. Pt reports pain at tolerable level. left BENIGNO drain continues to drain purulent drainage. IVF discontinued this am. No issues to report overnight. No more episodes of diarrhea noted. Pt resting comfortably. Will continue to
monitor.
[2024-11-04 07:37] VITALS: BP 109/62
[2024-11-04] MEDS: THERAGRAN 1 TABLET PO (07:53)
[2024-11-04] MEDS: VITAMIN D3 (cholecalciferol) 125 MCG PO (07:53)
[2024-11-04] MEDS: FEOSOL 325 MG PO (07:53)
[2024-11-04] MEDS: LIDOCAINE 4% PATCH 1 PATCH TOPICAL (07:54)
[2024-11-04 07:57] LABS: Hematocrit 28.9 % (37.0-47.0); Hemoglobin 9.1 g/dL (12.0-16.0); Mean Corp Hgb Conc. 31.5 g/dL (33.0-37.0); Mean Corpuscular Hgb 26.2 pg (27.0-31.0); Mean Corpuscular Volume 83.3 fL (81.0-99.0); Mean Platelet Volume 9.5 fL (7.4-10.4); Platelet Count 379 10^3/uL (130-400); Red Blood Cell Count 3.47 10^6/uL (4.20-5.40); Red Cell Dist. Width 15.8 % (11.5-14.5); White Blood Cell Count 15.5 10^3/uL (4.8-10.8)
[2024-11-04 08:42] LABS: Blood Urea Nitrogen 13 mg/dl (7-17); Calcium 7.5 mg/dl (8.4-10.2); Carbon Dioxide 27 mmol/L (22-30); Chloride 102 mmol/L (98-107); Estimated Creatinine Clearance 83 ml/min; Glucose 106 mg/dl (70-99); Potassium 3.1 mmol/L (3.5-5.1); Sodium 136 mmol/L (135-145); eGFR > 60.00
--- NOTE | 2024-11-04 09:28 | W.PN.CRS1 ---
Today's Communication / Plan
-
trend labs
follow exam
observe another day
Assessment/Plan
-
This is a 74-year-old female with a history of morbid obesity, hypertension, total abdominal hysterectomy who presents with left lower quadrant pain and found to have complicated sigmoid diverticulitis with multiple small and 1 dominant abscess in
the pelvis PPD #1 status post transgluteal IR drain placement.
Vitals: normal
WBC 15.5 (21.9)
-Continue antibiotics will plan for a 14-day course now that we have source control.
-Continue flushing IR drain.
-Continue on a low residue diet today
-Await cultures
-OOB as tolerated
-Observe exam another day, trend labs
-No plans for surgery at this time
Subjective Data
Procedure
None
Subjective Data
Date of Service: November 04, 2024
Patient states she is 'better' than she was yesterday and since admission. She denies nausea or vomiting. She has loose stools. Denies pain.
Objective Data
-
Vital Signs
Temp Pulse Resp BP Pulse Ox
98.8 F 80 18 109/62 99
11/04/24 07:37 11/04/24 07:37 11/04/24 07:37 11/04/24 07:37 11/04/24 07:37
Intake & Output
11/03/24 11/04/24 11/05/24
06:59 06:59 06:59
Intake Total 1350 / 1350 4015 / 4015
Output Total 40 / 40 165 / 165
Balance 1310 / 1310 3850 / 3850
Intake:
Oral fluids 240 / 240 1060 / 1060
IV fluids (Total) 1000 / 1000 2750 / 2750
IV piggybacks 100 / 100 200 / 200
Amount instilled into Drain (
Total)
Left Sacrum Placed in IR
Output:
Drain Output (Total) 165 / 165
Left Abdomen
Left Sacrum Placed in IR
Other:
Number of approximated MODERATE 1 3
amounts of urine
Number of approximated LARGE 1
amounts of urine
Lab Results
11/04/24 06:28
11/04/24 06:28
Physical Exam
-
General: No Acute Distress and AOx3
Abdomen: Soft, Non Distended, Tender (mild) and Other (BENIGNO drain green/butler thin)
Skin: Warm and Dry
--- NOTE | 2024-11-04 12:39 | W.PN.HOSP.TC ---
Today's Communication/Plan
-
Monitor vitals
See plan
ID evaluation
Follow cultures
Continue with antibiotics
Monitor leukocytosis
Monitor drain
Assessment / Plan
Assessment / Plan
Physical Exam
General: No acute distress, appears comfortable
HEENT: Moist mucous membranes EOMI
Respiratory: Clear; No Wheezes, Rales or Rhonchi
Cardiac: S1/S2 and Regular Rhythm; No Murmur
GI: Soft, mild tenderness lower abdomen. No rebound / guarding. Pos BS. BENIGNO drain present
Musculoskeletal: No Clubbing, No Cyanosis and No Edema
Neuro: AO x 3 conversant coherent
74F HTN Obesity here for diverticulitis with associate abscess.
Acute Sigmoid Diverticulitis with Abscesses
- cw zosyn for now
- IR consult appreciated percutaneous abscess drained, and BENIGNO drain placed
- Follow-up results of IR cultures. Growing polymicrobial. ID evaluation
- CRS consult appreciated
- Low residue diet as per CRS
- Pain control transitioned to po prn percocet, IV Dilaudid remains available for severe breakthrough pain
- Lidocaine patch at drain site tenderness
Hypertension
- BP well controlled at this time w/o irbesartan, cont hold, may consider discontinuing on discharge if not needed.
Obesity due to excess calories
- Affects all aspects of care.
- Encourage healthy diet and increased exercise with goal of weight loss.
DVT Prophylaxis: SCDs
Code Status: Full
Anticipated Discharge: 24 - 48 hours
Subjective/Interval History
-
Date of Service: November 04, 2024
Denies nausea
Objective Data
-
Labs:
Laboratory Results
11/04/24
06:28
WBC 15.5 H
Hgb 9.1 L
Hct 28.9 L
Plt Count 379
Sodium 136
Potassium 3.1 L
Chloride 102
Carbon Dioxide 27
BUN 13
Creatinine 0.8
Glucose 106 H
Calcium 7.5 L
Vital Signs:
Vital Signs
Temp Pulse Resp BP Pulse Ox
98.8 F 80 18 109/62 99
11/04/24 07:37 11/04/24 07:37 11/04/24 07:37 11/04/24 07:37 11/04/24 07:37
I&O
11/03/24 11/04/24 11/05/24
06:59 06:59 06:59
Intake Total 1350 / 1350 4015 / 4015
Output Total 40 / 40 165 / 165
Balance 1310 / 1310 3850 / 3850
--- NOTE | 2024-11-04 14:35 | VNURNOTE ---
Chart reviewed. Home Health Liaison met with patient and spouse at bedside to discuss [facility] nurse/therapy, visits, schedule and homebound status. Patient is agreeable and understands that visits at home will be 2-3 x per week to assess and teach
medical management. Patient is aware that [facility] will contact them for start of care in 1-2 days after discharge from . Pt confirms PCP is Dr Cal Lerma.
[facility] referral accepted in [facility].
[2024-11-04 15:18] VITALS: BP 119/72
--- NOTE | 2024-11-04 16:14 | CON.ID ---
Consultation
-
Date/Time Consultation Requested: 11/04/2024 1149
Date/Time Consultation Performed: 11/04/2024 1500
Requesting Provider: Dr. Underwood
Performing Provider: Dr. Vincent
Reason for Consultation: Diverticular abscess
Chief Complaint / Past History
History of Present Illness
Kalyn Wymna is a 74-year-old female being evaluated at the request of Dr. Underwood in regards to diverticular abscess. History is obtained from chart review, along with patient interview.
The patient reports that she was in her usual state of health until just before when she developed constipation. She spoke with her PCP who prescribed milk of magnesia, which she took, but she states it resulted in 2 days of
significant diarrhea. Several days later she was in her PCPs office with her , and at that time she was placed on 'an antidepressant'. She continued to feel unwell with abdominal discomfort and she followed up with the nurse practitioner in
the office when she was having abdominal pain and difficulty urinating. She was placed on a course of ciprofloxacin and Flomax. She notes that her urination improved but she continued with fevers, chills, decreased appetite and abdominal pain.
She went back to her PCP on 11/01 who ordered tests including blood work and a CAT scan. Blood work revealed leukocytosis, and a CT scan revealed diverticulitis and she was sent to the emergency room.
Since admission, she was evaluated by IR with a drain placed. Cultures are now growing gram-negative rods and strep viridans. Infectious Diseases asked to comment upon further antimicrobial therapy.
Past History
Additional Past Medical History:
HTN
Additional Past Surgical History:
KEN
Bilateral knee replacement
Allergy History:
No Known Allergies Allergy (Verified 03/03/23 11:58)
Medications Reviewed: Yes
Current Antibiotics:
Zosyn 3.375 g IV every 6 hours
Social History
Tobacco: Former Smoker
Alcohol: None
Drug: None
Personal:
Living: With Family
Employment: Retired
Family History
Family History: Not Pertinent
Review of Systems
Vital Signs
Temp Pulse Resp BP Pulse Ox
98.8 F 80 18 109/62 99
11/04/24 07:37 11/04/24 07:37 11/04/24 07:37 11/04/24 07:37 11/04/24 07:37
Physical Exam
Physical Exam
Constitutional: No Acute Distress, Comfortable and Non-toxic
Eyes: No Conjunctival Hemorrhage and Sclera Anicteric
Oral: No Thrush and No Ulcers
Cardiovascular: Regular Rate and S1/S2; Negative S3/S4
Pulmonary: Clear; Negative Wheezes, Rales or Rhonchi
Gastrointestinal: Soft, Non Tender, Non Distended, Normal Bowel Sounds and Other (Posterior drain in place. Purulent fluid in BENIGNO)
Genito-Urinary: Negative Christianson
Extremities: Edema; Negative Cyanosis or Erythema
Skin: Warm and Dry; Negative Rash or Jaundice
Neurological: Awake and Alert
Psychological: Calm
.
Lab / Diagnostic Study Results
11/04/24 06:28
11/04/24 06:28
Lactic Acid 0.9 mmol/L (0.7-2.0) 11/02/24 08:20
Ur Squamous Epith Cells >30 /LPF (Few) 11/02/24 04:50
Microbiology Results
Micro:
11/02/24 11:54 Wound Culture - Preliminary
Abscess Gram negative bacilli
Viridans Streptococcus Group
Gram Stain - Preliminary
11/01/24 20:28 Blood Culture - Preliminary
Blood/Venous No Growth in 48 hours- Final report to follow
11/01/24 20:28 Blood Culture - Preliminary
Blood/Venous No Growth in 48 hours- Final report to follow
11/02/24 04:50 Urine Culture - Final
Urine NO GROWTH
Imaging:
11/01/2024 CT abdomen/pelvis with IV contrast: Mild left lower lobe atelectasis noted. Liver, spleen and pancreas are unremarkable. There are at least 3 loculated fluid collections in the pelvis. The largest, which is the least loculated is in the
mid pelvis and measures approximately 8.7 x 4.3 cm. All 3 fluid collections have rim enhancement and are likely connected, suggestive of abscesses. No free extraluminal air noted. Mild diverticulosis noted. Mild pericolonic stranding about the
distal sigmoid colon, suggesting acute diverticulitis.
Assessment / Plan
Diverticular abscess; s/p drainage
Cultures with a gram-negative jasmyne and strep viridans
Leukocytosis
Hx HTN
Recommendations:
Continue with Zosyn for the present.
Await final identification and susceptibility of recovered gram-negative jasmyne.
CRS notes reviewed, and the hope is to treat infection and calm inflammation through the use of antibiotics to prevent acute surgery.
Patient will likely need to be discharged on a course of IV antibiotics with close follow-up.
Will continue to monitor white count and temperature curve.
Further recommendations as additional data is returned.
[2024-11-04] MEDS: MELATONIN 5 MG PO (22:04)
[2024-11-04] MEDS: PERCOCET 5/325 1 TABLET PO (22:04)
[2024-11-04 23:24] VITALS: BP 108/60
[2024-11-05] MEDS: ZOSYN 50 IV ×3 (02:55→14:21)
[2024-11-05 07:35] VITALS: BP 129/82
[2024-11-05 07:58] LABS: % Basophils 0.4 % (0-2); % Eosinophils 2.3 % (0-6); % Immature Granulocytes 2.3 % (0-0.5); % Lymphocytes 6.4 % (20.5-51.1); % Neutrophils 83.6 % (42.2-75.2); Absolute Eosinophils 0.3 10^3/uL (0-0.7); Absolute Immature Granulocytes 0.3 10^3/uL (0-0.05); Absolute Lymphocytes 0.7 10^3/uL (1.2-3.4); Absolute Monocytes 0.6 10^3/uL (0.1-0.6); Absolute Neutrophils 9.5 10^3/uL (1.4-6.5); Hematocrit 29.4 % (37.0-47.0); Hemoglobin 9.4 g/dL (12.0-16.0); Mean Corpuscular Hgb 26.3 pg (27.0-31.0); Mean Corpuscular Volume 82.4 fL (81.0-99.0); Mean Platelet Volume 9.4 fL (7.4-10.4); Nucleated Red Blood Cells % 0 %; Platelet Count 425 10^3/uL (130-400); Red Blood Cell Count 3.57 10^6/uL (4.20-5.40); Red Cell Dist. Width 15.5 % (11.5-14.5); White Blood Cell Count 11.3 10^3/uL (4.8-10.8)
[2024-11-05 08:31] LABS: Blood Urea Nitrogen 9 mg/dl (7-17); Calcium 7.9 mg/dl (8.4-10.2); Carbon Dioxide 28 mmol/L (22-30); Chloride 104 mmol/L (98-107); Estimated Creatinine Clearance 83 ml/min; Glucose 104 mg/dl (70-99); Potassium 3.3 mmol/L (3.5-5.1); Sodium 138 mmol/L (135-145); eGFR > 60.00
[2024-11-05] MEDS: LIDOCAINE 4% PATCH 1 PATCH TOPICAL (08:34)
[2024-11-05] MEDS: FEOSOL 325 MG PO (08:34)
[2024-11-05] MEDS: VITAMIN D3 (cholecalciferol) 125 MCG PO (08:35)
[2024-11-05] MEDS: THERAGRAN 1 TABLET PO (08:35)
[2024-11-05] MEDS: FLUSH (NSS) 1 FLUSH IV ×3 (08:36→16:04)
[2024-11-05] MEDS: KCL 40 MEQ PO (10:42)
--- NOTE | 2024-11-05 12:36 | CM ---
Addendum entered by Gillian Agarwal 11/05/24 15:33:
Infusion companies reviewed with patient and spouse and referral sent to [facility].
Addendum entered by Gillian Agarwal 11/05/24 15:12:
audience development manager received a script for IV infusion, will review infusion options with patient and check cost.
Original Note:
Chart reviewed and plan is for patient to return to home with [facility].
Plan; Home with [facility].
--- NOTE | 2024-11-05 13:00 | W.PN.CRS1 ---
Documented by User: Luanne Nguyen PA-C 11/05/24 13:06
Today's Communication / Plan
-
okay for d/c from our perspective
follow up with Dr. Major in 2 weeks
d/c per primary team
Assessment/Plan
-
This is a 74-year-old female with a history of morbid obesity, hypertension, total abdominal hysterectomy who presents with left lower quadrant pain and found to have complicated sigmoid diverticulitis with multiple small and 1 dominant abscess in
the pelvis PPD #1 status post transgluteal IR drain placement.
Vitals: normal
WBC 11.3 (15.3)
Hgb: 9.4 (9.1)
-Continue antibiotics per ID
-Continue flushing IR drain.
-Continue low residue diet
-Await cultures
-OOB as tolerated
-Okay to be discharged from our perspective - will need follow up in the office with Dr. Major in 2 weeks, remain with drain place. Will order drain study once evaluated in the office. Record output daily. Flushes per IR.
-No plans for surgery at this time
Subjective Data
Procedure
None
Subjective Data
Date of Service: November 05, 2024
Patient states she has no pain today. She denies nausea or vomiting. Overall she feels much better. Denies pain.
Objective Data
-
Vital Signs
Temp Pulse Resp BP Pulse Ox
98.2 F 79 16 129/82 97
11/05/24 07:35 11/05/24 07:35 11/05/24 07:35 11/05/24 07:35 11/05/24 08:50
Intake & Output
11/04/24 11/05/24 11/06/24
06:59 06:59 06:59
Intake Total 4015 / 4015 765 / 765
Output Total 165 / 165 40 / 40
Balance 3850 / 3850 725 / 725
Intake:
Oral fluids 1060 / 1060 660 / 660
IV fluids (Total) 2750 / 2750
IV piggybacks 200 / 200 100 / 100
Amount instilled into Drain (
Total)
Left Sacrum Placed in IR
Output:
Drain Output (Total)
Left Sacrum Placed in IR
Other:
Number of approximated MODERATE 3 3
amounts of urine
Number of approximated LARGE 3
amounts of urine
Lab Results
11/05/24 07:28
11/05/24 07:28
Physical Exam
-
General: No Acute Distress, Mild Distress and AOx3
Abdomen: Soft, Non Distended and Non Tender
Skin: Warm and Dry

Documented by User: Dao Mccall MD 11/05/24 18:35
Physical Exam
-
Abdomen: Other (BENIGNO- purulent output 40mL)
--- NOTE | 2024-11-05 14:13 | W.PN.HOSP.TC ---
Today's Communication/Plan
-
Monitor vitals
See plan
Continue with antibiotic per infectious disease
Plan for home IV antibiotics, Place PICC line
Case management involved
Assessment / Plan
Assessment / Plan
Physical Exam
General: No acute distress, appears comfortable
HEENT: Moist mucous membranes EOMI
Respiratory: Clear; No Wheezes, Rales or Rhonchi
Cardiac: S1/S2 and Regular Rhythm; No Murmur
GI: Soft, mild tenderness lower abdomen. No rebound / guarding. Pos BS. BENIGNO drain present
Musculoskeletal: No Clubbing, No Cyanosis and No Edema
Neuro: AO x 3 conversant coherent
74F HTN Obesity here for diverticulitis with associate abscess.
Acute Sigmoid Diverticulitis with Abscesses
- cw zosyn for now; discussed with infectious disease, plan for ertapenem on discharge. Place PICC line.
- IR consult appreciated percutaneous abscess drained, and BENIGNO drain placed
- Follow-up results of IR cultures. Growing polymicrobial. ID following. abx per ID
- CRS consult appreciated
- Low residue diet as per CRS
- Pain control transitioned to po prn percocet, IV Dilaudid remains available for severe breakthrough pain
- Lidocaine patch at drain site tenderness
Hypertension
- BP well controlled at this time w/o irbesartan, cont hold, may consider discontinuing on discharge if not needed.
Obesity due to excess calories
- Affects all aspects of care.
- Encourage healthy diet and increased exercise with goal of weight loss.
DVT Prophylaxis: SCDs
Code Status: Full
Anticipated Discharge: Within 24 hours
Subjective/Interval History
-
Date of Service: November 05, 2024
denies pain
Objective Data
-
Labs:
Laboratory Results
11/05/24
07:28
WBC 11.3 H
Hgb 9.4 L
Hct 29.4 L
Plt Count 425 H
Sodium 138
Potassium 3.3 L
Chloride 104
Carbon Dioxide 28
BUN 9
Creatinine 0.8
Glucose 104 H
Calcium 7.9 L
Vital Signs:
Vital Signs
Temp Pulse Resp BP Pulse Ox
98.2 F 79 16 129/82 97
11/05/24 07:35 11/05/24 07:35 11/05/24 07:35 11/05/24 07:35 11/05/24 08:50
I&O
11/04/24 11/05/24 11/06/24
06:59 06:59 06:59
Intake Total 4015 / 4015 765 / 765
Output Total 165 / 165 40 / 40
Balance 3850 / 3850 725 / 725
--- NOTE | 2024-11-05 15:31 | W.PN.ID1 ---
Date of Service
Date of Service: November 05, 2024
Today's Communication
Continue antibiotics.
Assessment / Plan
Diverticular abscess; s/p drainage
Cultures with E. coli, Citrobacter and Streptococcus viridans
Leukocytosis
Hx HTN
Recommendations:
Given that there were multiple abscesses noted on CAT scan, would prefer to continue with a course of IV antibiotics.
Will transition to once daily ertapenem.
Would treat for an additional 2 to 3 weeks.
Prescription given to case management.
PICC line ordered.
����������������������������������������������������������
Chief Complaint
-: Other (Diverticular abscess)
Subjective / Review of Systems
Review of Systems: No Fever and No Chills
Vital Signs / Physical Exam
Vital Signs
Vital Signs
Temp Pulse Resp BP Pulse Ox
98.2 F 79 16 129/82 97
11/05/24 07:35 11/05/24 07:35 11/05/24 07:35 11/05/24 07:35 11/05/24 08:50
Physical Exam
Constitutional: No Acute Distress, Comfortable and Non-toxic
Eyes: Sclera Anicteric
Cardiovascular: Regular Rate and S1/S2; Negative S3/S4
Pulmonary: Clear; Negative Wheezes, Rales or Rhonchi
Gastrointestinal: Soft, Non Tender, Non Distended and Other (Left BENIGNO in place. Purulent drainage noted.)
Neurological: Awake and Alert
Psychological: Calm
Objective Data
Lab Data
Lab Results
11/05/24 07:28
11/05/24 07:28
Estimated Creat Clear 83 ml/min 11/05/24 07:28
Lactic Acid 0.9 mmol/L (0.7-2.0) 11/02/24 08:20
Most recent labs reviewed.
Micro Results:
11/02/24 11:54 Wound Culture - Final
Abscess Escherichia coli
Citrobacter koseri
Viridans Streptococcus Group
Gram Stain - Final
11/01/24 20:28 Blood Culture - Preliminary
Blood/Venous No Growth in 72 hours- Final report to follow
11/01/24 20:28 Blood Culture - Preliminary
Blood/Venous No Growth in 72 hours- Final report to follow
11/02/24 04:50 Urine Culture - Final
Urine NO GROWTH
Imaging:
11/01/2024 CT abdomen/pelvis with IV contrast: Mild left lower lobe atelectasis noted. Liver, spleen and pancreas are unremarkable. There are at least 3 loculated fluid collections in the pelvis. The largest, which is the least loculated is in the
mid pelvis and measures approximately 8.7 x 4.3 cm. All 3 fluid collections have rim enhancement and are likely connected, suggestive of abscesses. No free extraluminal air noted. Mild diverticulosis noted. Mild pericolonic stranding about the
distal sigmoid colon, suggesting acute diverticulitis.
Care Review
Plan reviewed with: Physician (Hospitalist)
[2024-11-05 15:35] VITALS: BP 123/70
[2024-11-05] MEDS: INVANZ 60 MG IV (16:04)
--- NOTE | 2024-11-05 16:14 | PTCARENOTE ---
Pt AAO x3; PEÑA; OOB to BR with minimal assistance/walker; nella well. VSS. ON room air- pulse ox 96%, no SOB noted. Abd obese, soft, nella low residue diet. Pt reports loose BM x2 this shift; aware of need for C-dif sample. Voiding in BR without
difficulty. Lt lower back BENIGNO drain/dsg intact; draining small amts butler/bocanegra secretions. Resting in bed at present. Will continue to monitor.
--- NOTE | 2024-11-05 18:29 | VATNOTE ---
/ PICC for 3 weeks of antibiotics was ordered. Dr. mendez agreed to having a midline place given the duration of treatment is under 29 days. RT SL 4FR midline was placed under sterile techinique. Patient tolerated procedure. Pressure dressing
applied. TCL 20cm ECL0 UAC 42cm. Patient educated on signs for infection, maintenance, and care. Midline to be redressed tomorrow.
[2024-11-05] MEDS: MELATONIN 5 MG PO (21:31)
[2024-11-05] MEDS: PERCOCET 5/325 1 TABLET PO (21:46)
[2024-11-05 23:35] VITALS: BP 127/75
[2024-11-06 04:34] LABS: % Basophils 0.4 % (0-2); % Eosinophils 3.7 % (0-6); % Immature Granulocytes 2.2 % (0-0.5); % Lymphocytes 15.3 % (20.5-51.1); % Monocytes 7.1 % (1.7-9.3); % Neutrophils 71.3 % (42.2-75.2); Absolute Eosinophils 0.3 10^3/uL (0-0.7); Absolute Immature Granulocytes 0.2 10^3/uL (0-0.05); Absolute Lymphocytes 1.2 10^3/uL (1.2-3.4); Absolute Monocytes 0.6 10^3/uL (0.1-0.6); Absolute Neutrophils 5.8 10^3/uL (1.4-6.5); Hematocrit 27.2 % (37.0-47.0); Hemoglobin 8.8 g/dL (12.0-16.0); Mean Corp Hgb Conc. 32.4 g/dL (33.0-37.0); Mean Corpuscular Hgb 26.7 pg (27.0-31.0); Mean Corpuscular Volume 82.4 fL (81.0-99.0); Mean Platelet Volume 9.2 fL (7.4-10.4); Nucleated Red Blood Cells % 0 %; Platelet Count 417 10^3/uL (130-400); Red Cell Dist. Width 15.6 % (11.5-14.5); White Blood Cell Count 8.1 10^3/uL (4.8-10.8)
[2024-11-06 05:02] LABS: Blood Urea Nitrogen 11 mg/dl (7-17); Calcium 7.6 mg/dl (8.4-10.2); Carbon Dioxide 29 mmol/L (22-30); Chloride 106 mmol/L (98-107); Estimated Creatinine Clearance 83 ml/min; Glucose 92 mg/dl (70-99); Potassium 3.4 mmol/L (3.5-5.1); Sodium 139 mmol/L (135-145); eGFR > 60.00
[2024-11-06 07:40] VITALS: BP 162/90
--- NOTE | 2024-11-06 09:29 | W.PN.CRS1 ---
Today's Communication / Plan
-
ok for d/c from our perspective
drain study as an outpatient
Assessment/Plan
-
This is a 74-year-old female with a history of morbid obesity, hypertension, total abdominal hysterectomy who presents with left lower quadrant pain and found to have complicated sigmoid diverticulitis with multiple small and 1 dominant abscess in
the pelvis PPD #1 status post transgluteal IR drain placement.
Vitals: normal
WBC 8.1 (11.3)
Hgb: 8.8 (9.4)
-Continue IV antibiotics per ID
-Continue flushing IR drain.
-Continue low residue diet
-Await cultures
-OOB as tolerated
-Okay to be discharged from our perspective - will need follow up in the office with Dr. Major in 2 weeks, remain with drain place. Will order drain study once evaluated in the office. Record output daily. Flushes per IR.
-No plans for surgery at this time
Subjective Data
Procedure
None
Subjective Data
Date of Service: November 06, 2024
Patient states she is feeling well. She denies nausea or vomiting. Her pain has improved. She would like to go home. Tolerating a diet.
Objective Data
-
Vital Signs
Temp Pulse Resp BP Pulse Ox
97.4 F 86 16 162/90 94
11/06/24 07:40 11/06/24 07:40 11/06/24 07:40 11/06/24 07:40 11/06/24 07:40
Intake & Output
11/05/24 11/06/24 11/07/24
06:59 06:59 06:59
Intake Total 765 / 765 1455 / 1455 480 / 480
Output Total 40 / 40 15 / 15 10 / 10
Balance 725 / 725 1440 / 1440 470 / 470
Intake:
Oral fluids 660 / 660 1290 / 1290 480 / 480
IV piggybacks 100 / 100 160 / 160
Amount instilled into Drain (
Total)
Left Sacrum Placed in IR
Output:
Drain Output (Total) 40
Left Sacrum Placed in IR
Other:
Number of approximated MODERATE 3 3 1
amounts of urine
Number of approximated LARGE 3
amounts of urine
Number of unmeasured liquid
stools
Rectum 2
Lab Results
11/06/24 04:11
11/06/24 04:11
Physical Exam
-
General: No Acute Distress and AOx3
Abdomen: Soft, Non Distended and Non Tender
Skin: Warm and Dry
[2024-11-06] MEDS: VITAMIN D3 (cholecalciferol) 125 MCG PO (09:55)
[2024-11-06] MEDS: FEOSOL 325 MG PO (09:55)
[2024-11-06] MEDS: LIDOCAINE 4% PATCH 1 PATCH TOPICAL (09:55)
[2024-11-06] MEDS: THERAGRAN 1 TABLET PO (09:55)
[2024-11-06] MEDS: KCL 20 MEQ PO (09:57)
--- NOTE | 2024-11-06 11:03 | W.PN.HOSP.TC ---
Today's Communication/Plan
-
Monitor vital signs see plan
Possible discharge today after antibiotics set up, watch case polisher aware
Pain control
Monitor drain
Assessment / Plan
Assessment / Plan
Physical Exam
General: No acute distress, appears comfortable
HEENT: Moist mucous membranes EOMI
Respiratory: Clear; No Wheezes, Rales or Rhonchi
Cardiac: S1/S2 and Regular Rhythm; No Murmur
GI: Soft, mild tenderness lower abdomen. No rebound / guarding. Pos BS. BENIGNO drain present
Musculoskeletal: No Clubbing, No Cyanosis and No Edema
Neuro: AO x 3 conversant coherent
74F HTN Obesity here for diverticulitis with associate abscess.
Acute Sigmoid Diverticulitis with Abscesses
- cw zosyn for now; discussed with infectious disease, plan for ertapenem on discharge. Place PICC line.
- IR consult appreciated percutaneous abscess drained, and BENIGNO drain placed
- Follow-up results of IR cultures. Growing polymicrobial. ID following. abx per ID. Now on daily ertapenem. Per ID antibiotics for at least 2 to 3 weeks and possible reimage. Now with PICC line. Plan for home antibiotics
- CRS consult appreciated
- Low residue diet as per CRS
- Pain control transitioned to po prn percocet, IV Dilaudid remains available for severe breakthrough pain
- Lidocaine patch at drain site tenderness
Hypokalemia
Replete
Anemia
Continue to monitor, denies any bleeding
Hypertension
- BP well controlled at this time w/o irbesartan, cont hold
Obesity due to excess calories
- Affects all aspects of care.
- Encourage healthy diet and increased exercise with goal of weight loss.
DVT Prophylaxis: SCDs
Code Status: Full
Anticipated Discharge: Today
Subjective/Interval History
-
Date of Service: November 06, 2024
denies pain
Objective Data
-
Labs:
Laboratory Results
11/06/24
04:11
WBC 8.1
Hgb 8.8 L
Hct 27.2 L
Plt Count 417 H
Sodium 139
Potassium 3.4 L
Chloride 106
Carbon Dioxide 29
BUN 11
Creatinine 0.8
Glucose 92
Calcium 7.6 L
Vital Signs:
Vital Signs
Temp Pulse Resp BP Pulse Ox
97.4 F 86 16 162/90 94
11/06/24 07:40 11/06/24 07:40 11/06/24 07:40 11/06/24 07:40 11/06/24 07:40
I&O
11/05/24 11/06/24 11/07/24
06:59 06:59 06:59
Intake Total 765 / 765 1455 / 1455 480 / 480
Output Total 40 / 40 15 / 15 10 / 10
Balance 725 / 725 1440 / 1440 470 / 470
--- NOTE | 2024-11-06 11:11 | W.PN.ID1 ---
Date of Service
Date of Service: November 06, 2024
Today's Communication
Continue antibiotics.
Assessment / Plan
Diverticular abscess; s/p drainage
Cultures with E. coli, Citrobacter and Streptococcus viridans
Leukocytosis
Hx HTN
Recommendations:
Given that there were multiple abscesses noted on CAT scan, would prefer to continue with a course of IV antibiotics.
Will transition to once daily ertapenem.
Would treat for an additional 2 to 3 weeks.
Prescription for home IV antibiotics given to case management.
Midline inserted.
Repeat imaging in 2 to 3 weeks.
Will follow outpatient labs weekly.
����������������������������������������������������������
Chief Complaint
-: Other (Diverticular abscess)
Subjective / Review of Systems
Review of Systems: No Fever, No Chills, No Abdominal Pain and Diarrhea
Vital Signs / Physical Exam
Vital Signs
Vital Signs
Temp Pulse Resp BP Pulse Ox
97.4 F 86 16 162/90 94
11/06/24 07:40 11/06/24 07:40 11/06/24 07:40 11/06/24 07:40 11/06/24 07:40
Physical Exam
Constitutional: No Acute Distress, Comfortable and Non-toxic
Eyes: Sclera Anicteric
Cardiovascular: Regular Rate and S1/S2; Negative S3/S4
Pulmonary: Clear; Negative Wheezes, Rales or Rhonchi
Gastrointestinal: Soft, Non Tender, Non Distended and Other (Left BENIGNO in place. Purulent drainage noted.)
Neurological: Awake and Alert
Psychological: Calm
Lines: PICC (Right upper extremity midline)
Objective Data
Lab Data
Lab Results
11/06/24 04:11
11/06/24 04:11
Estimated Creat Clear 83 ml/min 11/06/24 04:11
Lactic Acid 0.9 mmol/L (0.7-2.0) 11/02/24 08:20
Most recent labs reviewed.
Micro Results:
11/01/24 20:28 Blood Culture - Preliminary
Blood/Venous No Growth in 4 days- Final report to follow
11/01/24 20:28 Blood Culture - Preliminary
Blood/Venous No Growth in 4 days- Final report to follow
11/02/24 11:54 Wound Culture - Final
Abscess Escherichia coli
Citrobacter koseri
Viridans Streptococcus Group
Gram Stain - Final
11/02/24 04:50 Urine Culture - Final
Urine NO GROWTH
Imaging:
11/01/2024 CT abdomen/pelvis with IV contrast: Mild left lower lobe atelectasis noted. Liver, spleen and pancreas are unremarkable. There are at least 3 loculated fluid collections in the pelvis. The largest, which is the least loculated is in the
mid pelvis and measures approximately 8.7 x 4.3 cm. All 3 fluid collections have rim enhancement and are likely connected, suggestive of abscesses. No free extraluminal air noted. Mild diverticulosis noted. Mild pericolonic stranding about the
distal sigmoid colon, suggesting acute diverticulitis.
Care Review
Plan reviewed with: Physician (CRS)
--- NOTE | 2024-11-06 13:01 | VNURNOTE ---
Noted DC instructions for BENIGNO drain. NSS flushes unavailable at pt's preferred pharmacy ([facility]). Patient agreeable to oyster picker flushes at [facility]. Hospitalist aware to send rx there. Requested from RN Semaj to sent home with some extra.
--- NOTE | 2024-11-06 13:32 | CM ---
Chart reviewed. Patient requiring continued IV abx at d/c.
Received message from Bryanna/[facility], per Bryanna, patient's insurance does require an prior authorization for abx. [facility] cannot proceed w/ discharge plan until auth is obtained. Per Bryanna her intake team does not have an auth back yet and
will notify her once auth is received. Uncertain if [facility] obtaining auth or if physician has to. Awaiting response for clarity.
Plan: Home w/ [facility] and [facility]. Awaiting prior auth for abx
--- NOTE | 2024-11-06 15:30 | CHAP ---
Msgr. Otoniel De León of [facility] in [place] gave Kalyn Sullivan Communion.
[2024-11-06 15:45] VITALS: BP 162/90
[2024-11-06] MEDS: INVANZ 60 MG IV (15:49)
[2024-11-06] MEDS: MELATONIN 5 MG PO (21:07)
[2024-11-06 23:00] VITALS: BP 136/77
[2024-11-07 06:00] LABS: % Basophils 0.4 % (0-2); % Eosinophils 3.2 % (0-6); % Immature Granulocytes 1.6 % (0-0.5); % Lymphocytes 12.5 % (20.5-51.1); % Monocytes 5.4 % (1.7-9.3); % Neutrophils 76.9 % (42.2-75.2); Absolute Eosinophils 0.3 10^3/uL (0-0.7); Absolute Immature Granulocytes 0.1 10^3/uL (0-0.05); Absolute Monocytes 0.4 10^3/uL (0.1-0.6); Absolute Neutrophils 6.3 10^3/uL (1.4-6.5); Hematocrit 30.1 % (37.0-47.0); Hemoglobin 9.4 g/dL (12.0-16.0); Mean Corp Hgb Conc. 31.2 g/dL (33.0-37.0); Mean Corpuscular Hgb 25.8 pg (27.0-31.0); Mean Corpuscular Volume 82.7 fL (81.0-99.0); Mean Platelet Volume 8.7 fL (7.4-10.4); Nucleated Red Blood Cells % 0 %; Platelet Count 455 10^3/uL (130-400); Red Blood Cell Count 3.64 10^6/uL (4.20-5.40); Red Cell Dist. Width 15.9 % (11.5-14.5); White Blood Cell Count 8.2 10^3/uL (4.8-10.8)
[2024-11-07 06:25] LABS: Blood Urea Nitrogen 10 mg/dl (7-17); Carbon Dioxide 28 mmol/L (22-30); Chloride 108 mmol/L (98-107); Estimated Creatinine Clearance 95 ml/min; Glucose 96 mg/dl (70-99); Potassium 3.9 mmol/L (3.5-5.1); Sodium 139 mmol/L (135-145); eGFR > 60.00
[2024-11-07 07:16] VITALS: BP 147/86
[2024-11-07] MEDS: THERAGRAN 1 TABLET PO (10:17)
[2024-11-07] MEDS: VITAMIN D3 (cholecalciferol) 125 MCG PO (10:17)
[2024-11-07] MEDS: LIDOCAINE 4% PATCH 1 PATCH TOPICAL (10:17)
[2024-11-07] MEDS: FEOSOL 325 MG PO (10:17)
--- NOTE | 2024-11-07 11:22 | W.PN.HOSP.TC ---
Addendum entered and electronically signed by Raymon Underwood MD 11/07/24 15:40:
Time of discharge 39 minutes
Original Note:
Today's Communication/Plan
-
Monitor vitals
See plan
Maintain BENIGNO drain
Awaiting antibiotics approval, supportive employment case manager aware. hopeful dc today
Assessment / Plan
Assessment / Plan
Physical Exam
General: No acute distress, appears comfortable
HEENT: Moist mucous membranes EOMI
Respiratory: Clear; No Wheezes, Rales or Rhonchi
Cardiac: S1/S2 and Regular Rhythm; No Murmur
GI: Soft, mild tenderness lower abdomen. No rebound / guarding. Pos BS. BENIGNO drain present
Musculoskeletal: No Clubbing, No Cyanosis and No Edema
Neuro: AO x 3 conversant coherent
74F HTN Obesity here for diverticulitis with associate abscess.
Acute Sigmoid Diverticulitis with Abscesses
- Now on ertapenem; discussed with infectious disease, plan for ertapenem on discharge. has midline
- IR consult appreciated percutaneous abscess drained, and BENIGNO drain placed
- Follow-up results of IR cultures. Growing polymicrobial. ID following. abx per ID. Now on daily ertapenem. Per ID antibiotics for at least 2 to 3 weeks and possible reimage. Now with PICC line. Plan for home antibiotics
- CRS consult appreciated
- Low residue diet as per CRS
- Pain control transitioned to po prn percocet, IV Dilaudid remains available for severe breakthrough pain
- Lidocaine patch at drain site tenderness
Hypokalemia
Replete
Anemia
Continue to monitor, denies any bleeding
Hypertension
- BP well controlled at this time w/o irbesartan, cont hold
Obesity due to excess calories
- Affects all aspects of care.
- Encourage healthy diet and increased exercise with goal of weight loss.
DVT Prophylaxis: SCDs
Code Status: Full
Anticipated Discharge: Today
Subjective/Interval History
-
Date of Service: November 07, 2024
denies nausea
Objective Data
-
Labs:
Laboratory Results
11/07/24
05:42
WBC 8.2
Hgb 9.4 L
Hct 30.1 L
Plt Count 455 H
Sodium 139
Potassium 3.9
Chloride 108 H
Carbon Dioxide 28
BUN 10
Creatinine 0.7
Glucose 96
Calcium 8.0 L
Vital Signs:
Vital Signs
Temp Pulse Resp BP Pulse Ox
97.2 F 83 20 147/86 95
11/07/24 07:16 11/07/24 07:16 11/07/24 07:16 11/07/24 07:16 11/07/24 07:16
I&O
11/06/24 11/07/24 11/08/24
06:59 06:59 06:59
Intake Total 1455 / 1455 725 / 725
Output Total
Balance 1440 / 1440 700 / 700
--- NOTE | 2024-11-07 13:52 | W.PN.ID1 ---
Date of Service
Date of Service: November 07, 2024
Today's Communication
Continue antibiotics.
Assessment / Plan
Diverticular abscess; s/p drainage
Cultures with E. coli, Citrobacter and Streptococcus viridans
Leukocytosis
Hx HTN
Recommendations:
Given that there were multiple abscesses noted on CAT scan, would prefer to continue with a course of IV antibiotics.
Continue ertapenem.
Would treat for an additional 2 to 3 weeks.
Prescription for home IV antibiotics given to case management.
Midline inserted.
Repeat imaging in 2 to 3 weeks.
Will follow outpatient labs weekly.
����������������������������������������������������������
Chief Complaint
-: Other (Diverticular abscess)
Subjective / Review of Systems
Patient seen and examined. Feeling improved today.
Review of Systems: No Fever and No Chills
Vital Signs / Physical Exam
Vital Signs
Vital Signs
Temp Pulse Resp BP Pulse Ox
97.2 F 83 20 147/86 95
11/07/24 07:16 11/07/24 07:16 11/07/24 07:16 11/07/24 07:16 11/07/24 07:16
Physical Exam
Constitutional: No Acute Distress, Comfortable and Non-toxic
Eyes: Sclera Anicteric
Pulmonary: Non Labored
Gastrointestinal: Non Distended and Other (Left BENIGNO in place. Purulent drainage noted.)
Neurological: Awake and Alert
Psychological: Calm
Lines: PICC (Right upper extremity midline)
Objective Data
Lab Data
Lab Results
11/07/24 05:42
11/07/24 05:42
Estimated Creat Clear 95 ml/min 11/07/24 05:42
Lactic Acid 0.9 mmol/L (0.7-2.0) 11/02/24 08:20
Most recent labs reviewed.
Micro Results:
11/01/24 20:28 Blood Culture - Final
Blood/Venous No Growth - Final Report
11/01/24 20:28 Blood Culture - Final
Blood/Venous No Growth - Final Report
11/02/24 11:54 Wound Culture - Final
Abscess Escherichia coli
Citrobacter koseri
Viridans Streptococcus Group
Gram Stain - Final
11/02/24 04:50 Urine Culture - Final
Urine NO GROWTH
Imaging:
11/01/2024 CT abdomen/pelvis with IV contrast: Mild left lower lobe atelectasis noted. Liver, spleen and pancreas are unremarkable. There are at least 3 loculated fluid collections in the pelvis. The largest, which is the least loculated is in the
mid pelvis and measures approximately 8.7 x 4.3 cm. All 3 fluid collections have rim enhancement and are likely connected, suggestive of abscesses. No free extraluminal air noted. Mild diverticulosis noted. Mild pericolonic stranding about the
distal sigmoid colon, suggesting acute diverticulitis.
--- NOTE | 2024-11-07 13:55 | CM ---
Addendum entered by Mynor Hernandez 11/07/24 15:51:
Spoke w/ saeid Gould received for abx. Patient's co pay will be $204/week. Medication and supplies will be delivered tomorrow around 3 pm for 4 pm dose. Patient can d/c after this afternoon's dose today.
Updated hospitalist
Updated patient and spouse bedside. IMM verbally reviewed, copy provided, copy on chart
[facility] accepted for services
[facility]

Original Note:
Spoke w/ Bryanna/[facility] liaison, completed bedside teaching w/ patient.
Auth for abx still pending, however, patient may be able to d/c today after afternoon dose. Delivery of abx and supplies will be delivered tomorrow
Per Bryanna, Dr. Vincent was at bedside, stated his office will assist w/ expediting auth
Bryanna updated nurse, will confirm w/ CM if patient is able to d/c today
Plan: Home w/ [facility] infusion and [facility]
[2024-11-07 15:13] VITALS: BP 143/78
--- NOTE | 2024-11-07 15:42 | W.DCSUMMARY ---
Discharge Summary
Discharge Data
Date of Admission: 11/01/24
Date of Discharge: 11/07/24
-
Pending Results: No
Hospital Course
74-year-old female with past medical history of obesity, hypertension came to the hospital with acute sigmoid diverticulitis with multiple abscesses. Patient was seen by colorectal surgery and ID throughout hospitalization. IR was also consulted
who performed percutaneous abscess drainage and BENIGNO drain was placed which was present on discharge. Colorectal surgery recommended patient to follow-up with them closely outpatient and patient will need repeat CT scan and BENIGNO drain tube study.
Infectious disease recommended IV antibiotics and discharge and to follow-up with them outpatient. Over time since patient symptoms continue to improve, she was then discharged home on antibiotics with instructions to follow-up with all her
physicians outpatient.
Discharge Plan
-
Patient Disposition: Home with Home Care
Discharge Diagnosis/Procedures: Acute Sigmoid Diverticulitis with Abscesses
BENIGNO drain
Diet: Low Residue
Activity: As tolerated
Driving Restrictions: As prior to admission
Bathing Restrictions: None
Others Tests: CT abdomen and pelvis 2 weeks from your discharge to assess your intraabdominal abscess. An order has been placed to [facility]. Please call [phone] to schedule.
Wound Care: Record daily outputs from your drain.
Flush as directed. Flush drain daily with 10cc NSS
Instructions: Low-fiber diet, How to care for a closed suction drain
Referrals:
Colton Major MD [Active, ColoRectal] - in two weeks
Dao Vincent, DO [Active, Infectious Diseases]
UNKNOWN - PT DOES,NOT KNOW [Family Provider] - in less than 1 week
Prescriptions:
New
sodium chloride 0.9 % (flush) [Monoject 0.9% Sodium Chloride] Syringe
10 ml intra-catheter DAILY Qty: 25 0RF
Rx Instructions:
Flush drain daily with 10cc NSS
lidocaine 4 % Adhesive Patch,Medicated
1 patch topical DAILY Qty: 30 0RF
oxycodone-acetaminophen 5-325 mg Tablet
1 tab PO Q4HPRN PRN (Reason: moderate to severe pain) Qty: 10 0RF
acetaminophen 325 mg Tablet
650 mg PO Q4HPRN PRN (Reason: Mild Pain / Temp > 101/BELL) Qty: 0 0RF
Ertapenem [Invanz] 1000 MG
0.9% Sodium Chloride [Nss] 50 ML
120 mls/hr IV Q24H
Ordered By: Raymon Underwood MD
Last Taken: 11/07/24 16:00 60 mls
Continued
ferrous sulfate 325 mg (65 mg iron) Tablet
325 mg PO DAILY Qty: 0
multivitamin Tablet
1 tab PO DAILY
melatonin 5 mg Tablet
5 mg PO HS
cholecalciferol (vitamin D3) [Vitamin D3] 125 mcg (5,000 unit) Tablet
125 mcg PO DAILY
Held
irbesartan 300 MG tablet
300 mg PO DAILY Qty: 0 0RF
Hold Instructions: Restart when blood pressure is greater than 140/90
Discharge Orders:
Discharge Patient (As Directed); Ordered 11/07/24
Ordered By: Raymon Underwood
Discharge Date and Time
Discharge Date/Time: 11/07/24 17:49
Print Language: ICELANDIC
[2024-11-07] MEDS: INVANZ 60 MG IV (16:00)
== END 2024-11-07 17:49 | disposition home health service (06) | DRG 391 ==
LOC: 4 EAST ACU 21:33
PROVIDERS: Internal Medicine; Radiology Vascular & Interventional Radiology; Registered Nurse; ADMITTING PHYSICIAN Hospitalist; ATTENDING PHYSICIAN Internal Medicine; CONSULT PHYSICIAN Internal Medicine Infectious Disease; EMERGENCY PHYSICIAN Emergency Medicine; OTHER PHYSICIAN Surgery
PROC: 0W9J30Z Drainage of Pelvic Cavity with Drainage Device, Percutaneous Approach (ICD-10-PCS; 2024-11-02)
PROC: 02HV33Z Insertion of Infusion Device into Superior Vena Cava, Percutaneous Approach (ICD-10-PCS; 2024-11-05)
DX: K57.20 Diverticulitis of large intestine with perforation and abscess without bleeding (principal); K65.1 Peritoneal abscess; Z87.891 Personal history of nicotine dependence; I10 Essential (primary) hypertension; E66.09 Other obesity due to excess calories; Z68.35 Body mass index [BMI] 35.0-35.9, adult; E87.6 Hypokalemia
CPT/HCPCS: 36415; 49406; 74177; 80048; 80053; 81003; 81015; 83605; 83735; 84100; 85025; 85027; 87040; 87070; 87077; 87086; 87186; 87205; 96365; 96375; 99152; 99284; J1335; Q9967

== ENCOUNTER → 2024-11-15 13:22 | Outpatient (REF) | payer OTHER, SELFPAY ==
[2024-11-15 13:30] VITALS: BP 157/89; BP_SYST 77
== END ==
LOC: RADI 13:22
PROVIDERS: ATTENDING PHYSICIAN Surgery; FAMILY PHYSICIAN Family Medicine
DX: Z46.82 Encounter for fitting and adjustment of non-vascular catheter (principal); K57.20 Diverticulitis of large intestine with perforation and abscess without bleeding
CPT/HCPCS: 49424; 76080

== ENCOUNTER → 2024-11-21 11:44 | Outpatient (REF) | payer OTHER, SELFPAY | LOC: RAD 11:44 | PROVIDERS: ATTENDING PHYSICIAN Surgery; FAMILY PHYSICIAN Family Medicine | DX: K57.80 Diverticulitis of intestine, part unspecified, with perforation and abscess without bleeding (principal) | CPT/HCPCS: 74177; Q9967 ==

== ENCOUNTER → 2025-06-03 12:55 | Outpatient (REF) | payer OTHER, SELFPAY | LOC: RAD 12:55 | PROVIDERS: ATTENDING PHYSICIAN Family Medicine | DX: R31.29 Other microscopic hematuria (principal); D64.9 Anemia, unspecified; N28.9 Disorder of kidney and ureter, unspecified | CPT/HCPCS: 76770 ==